=== PATIENT | male | born 1985 | race African-American/Black ===

== ENCOUNTER 2017-03-17 08:59 | Emergency (ER) | payer SELFPAY ==
[~2017-03-17] VITALS: Ht 175.3 cm; Wt 100.0 kg
[~2017-03-17 08:59] MED LIST: NAPROSYN500 MG PO; ZPAK PO
[2017-03-17 09:38] LABS: HEMATOCRIT 38.9 % (39.0-50.0); HEMOGLOBIN 12.6 g/dl (14.0-18.0); IMMATURE GRANULOCYTES 0.5 % (0.0-1.0); MEAN CELL VOLUME 87.6 fL CALC (80.0-100.0); MEAN CORPUSCULAR HGB 28.4 pG CALC (26.0-32.0); MEAN CORPUSCULAR HGB CONC 32.4 g/L CALC (32.0-36.0); NEUT# 5.06 thou/uL (1.82-7.42); RED BLOOD COUNT 4.44 mill/uL (4.70-6.10); RED CELL DISTRI WIDTH 12.9 % (11.5-15.5)
[2017-03-17 09:54] LABS: ALBUMIN 4.6 g/dL (3.2-5.0); ALKALINE PHOSPHATASE 67 u/l (38-126); ANION GAP 18 (6-22 (CALC)); BILIRUBIN, TOTAL 0.5 mg/dL (0.0-1.4); BUN 14 mg/dL (9-20); BUN/CREATININE RATIO 12 (12-20 (CALC)); CALCIUM 9.3 mg/dL (8.4-10.2); CARBON DIOXIDE 25 mmol/l (22-30); CHLORIDE 107 mmol/l (95-108); CREATININE 1.1 mg/dL (0.7-1.3); GFR > 60 ML/MIN (>=60 (CALC)); GFR FOR AFR.AMER. > 60 ML/MIN (>=60 (CALC)); GLUCOSE 79 mg/dL (75-110); POTASSIUM 3.9 mmol/l (3.5-5.1); SGOT/AST 26 u/l (17-59); SGPT/ALT 36 u/l (21-72); SODIUM 145 mmol/l (137-146); TOTAL PROTEIN 7.7 g/dL (6.3-8.2)
[2017-03-17] MEDS ORDERED: NAPROSYN500 MG PO (10:10)
[2017-03-17] MEDS ORDERED: DOXYCYC MONO100 M1 PO (10:10)
[2017-03-17 11:10] VITALS: BP 117/66
== END 2017-03-17 11:10 | disposition home or self-care (01) | DRG 605 ==
LOC: ED 08:59
PROVIDERS: Emergency Medicine
DX: S91.332A Puncture wound without foreign body, left foot, initial encounter (principal); L03.116 Cellulitis of left lower limb; W45.0XXA Nail entering through skin, initial encounter; W22.8XXA Striking against or struck by other objects, initial encounter; Y92.009 Unspecified place in unspecified non-institutional (private) residence as the place of occurrence of the external cause
CPT/HCPCS: J2020

== ENCOUNTER 2017-10-07 15:11 | Emergency (ER) | payer SELFPAY ==
[~2017-10-07] VITALS: Ht 175.3 cm; Wt 109.0 kg
[~2017-10-07 15:11] MED LIST changes: +DOXYCYC MONO100 M1 PO
[2017-10-07 16:10] VITALS: BP 135/77
[2017-10-07] MEDS ORDERED: VALACYCLOVIR HCL1 GM PO (19:07)
== END 2017-10-07 16:08 | disposition left against medical advice (07) | DRG 951 ==
LOC: ED 15:11 → LWOBS 16:08
DX: Z91.19 Patient's noncompliance with other medical treatment and regimen (principal)

== ENCOUNTER 2017-10-07 16:53 | Emergency (ER) | payer SELFPAY ==
[~2017-10-07] VITALS: Ht 175.3 cm; Wt 113.0 kg
[2017-10-07 18:46] LABS: HEMOGLOBIN 12.1 g/dl (14.0-18.0); IMMATURE GRANULOCYTES 0.3 % (0.0-1.0); MEAN CELL VOLUME 86.8 fL CALC (80.0-100.0); MEAN CORPUSCULAR HGB 27.6 pG CALC (26.0-32.0); MEAN CORPUSCULAR HGB CONC 31.8 g/L CALC (32.0-36.0); NEUT# 3.37 thou/uL (1.82-7.42); RED BLOOD COUNT 4.38 mill/uL (4.70-6.10); RED CELL DISTRI WIDTH 12.9 % (11.5-15.5)
[2017-10-07 18:54] LABS: ANION GAP 15 (6-22 (CALC)); BUN 14 mg/dL (9-20); BUN/CREATININE RATIO 13 (12-20 (CALC)); CARBON DIOXIDE 28 mmol/l (22-30); CHLORIDE 104 mmol/l (95-108); CREATININE 1.1 mg/dL (0.7-1.3); GFR > 60 ML/MIN (>=60 (CALC)); GFR FOR AFR.AMER. > 60 ML/MIN (>=60 (CALC)); POTASSIUM 3.8 mmol/l (3.5-5.1); SODIUM 143 mmol/l (137-146)
[2017-10-07] MEDS ORDERED: VALACYCLOVIR HCL1 GM PO (19:07)
[2017-10-07 19:13] VITALS: BP 123/75
== END 2017-10-07 19:18 | disposition home or self-care (01) | DRG 596 ==
LOC: ED 16:53
PROVIDERS: Family Medicine
DX: B02.9 Zoster without complications (principal); F17.210 Nicotine dependence, cigarettes, uncomplicated

== ENCOUNTER 2020-06-29 21:18 | Emergency (ER) | payer SELFPAY ==
[~2020-06-29] VITALS: Ht 175.3 cm; Wt 100.0 kg
[~2020-06-29 21:18] MED LIST changes: +VALACYCLOVIR HCL1 GM PO
[2020-06-29 21:52] LABS: HEMATOCRIT 41.1 % (39.0-50.0); HEMOGLOBIN 13.1 g/dl (14.0-18.0); IMMATURE GRANULOCYTES 0.2 % (0.0-5.0); MEAN CELL VOLUME 86.3 fL CALC (80.0-100.0); MEAN CORPUSCULAR HGB 27.5 pG CALC (26.0-32.0); MEAN CORPUSCULAR HGB CONC 31.9 g/dL CAL (32.0-36.0); NEUT# 1.94 thou/uL (1.82-7.42); RED BLOOD COUNT 4.76 mill/uL (4.70-6.10); RED CELL DISTRI WIDTH 13.4 % (11.5-15.5)
[2020-06-29 22:07] LABS: PROTHROMBIN TIME 10.4 SECONDS (9.0-12.5)
[2020-06-29 22:08] VITALS: BP 142/73
[2020-06-29 22:09] LABS: ALBUMIN 4.7 g/dL (3.2-5.0); ALKALINE PHOSPHATASE 94 u/l (38-126); ANION GAP 15 (6-22 (CALC)); BILIRUBIN, TOTAL 0.3 mg/dL (0.0-1.4); BUN 13 mg/dL (9-20); BUN/CREATININE RATIO 11 (12-20 (CALC)); CARBON DIOXIDE 24 mmol/l (22-30); CHLORIDE 105 mmol/l (95-108); CREATININE 1.2 mg/dL (0.7-1.3); GFR > 60 ML/MIN (>=60 (CALC)); GFR FOR AFR.AMER. > 60 ML/MIN (>=60 (CALC)); POTASSIUM 3.7 mmol/l (3.5-5.1); SGOT/AST 35 u/l (17-59); SODIUM 140 mmol/l (137-146); TOTAL PROTEIN 7.9 g/dL (6.3-8.2)
== END 2020-06-29 22:18 | disposition left against medical advice (07) | DRG 379 ==
LOC: ED 21:18
PROVIDERS: Emergency Medicine
DX: K62.5 Hemorrhage of anus and rectum (principal); F17.200 Nicotine dependence, unspecified, uncomplicated; Z91.19 Patient's noncompliance with other medical treatment and regimen